=== PATIENT | female | born 1945 | race Caucasian/White ===

== ENCOUNTER 2017-01-18 09:58 | Emergency (ER) | payer OTHER, MEDICARE ==
[~2017-01-18] VITALS: Ht 152.4 cm; Wt 49.4 kg
[~2017-01-18 09:58] MED LIST: SIMV20TA2 PO
[2017-01-18 10:04] VITALS: BP_SYST 142
--- NOTE | 2017-01-18 10:09 | NUR ---
Patient triaged and placed in waiting room. VSS and patient appears in no acute distress at this time. Accompanied by SELF, awaiting available bed, and MD notified of need for MSE.
--- NOTE | 2017-01-18 10:53 | NUR ---
Patient to ER bed 3 to gown for evaluation. Side rails up. Report given to Yanni COATES.
[2017-01-18] MEDS ORDERED: NACL 0.9% 1,000 ML IV ONE (11:03)
--- NOTE | 2017-01-18 11:03 | NUR ---
ER at bedside examining patient.
--- NOTE | 2017-01-18 11:16 | NUR ---
Pt presents to ED with decreased appetite, and generalized weakness. Pt believes she may have skin ca, but does not have results of bx. Pt points to left side of nose as skin ca origin, but no noted growth to skin. Pt is A&O x4
--- NOTE | 2017-01-18 11:30 | NUR ---
Tech took pt to Radiology for Ct scan. Pt refused CT scan. Made Dr David aware, R/B explained. Pt cont to refuse
[2017-01-18 11:40] LABS: BASOPHILS % (AUTO) 0.2 % (0.0-2.0); HEMATOCRIT 44.5 % (36-48); HEMOGLOBIN 14.3 g/dL (12.0-16.0); LYMPHOCYTES # (AUTO) 0.7 K/uL (1.0-5.5); LYMPHOCYTES % (AUTO) 7.6 % (20.5-51.5); MEAN CORPUSCULAR HEMOGLOBIN 30 pg (27-31); MEAN CORPUSCULAR HGB CONC 32 % (32-36); MEAN CORPUSCULAR VOLUME 92 fL (79.0-98.0); MONOCYTES # (AUTO) 0.7 K/uL (0.0-1.0); MONOCYTES % (AUTO) 7.3 % (1.7-9.3); NEUTROPHILS # (AUTO) 7.7 K/uL (1.8-7.7); NEUTROPHILS % (AUTO) 84.9 % (40.0-70.0); PLATELET COUNT (AUTO) 193 K/uL (130-430); RED BLOOD CELL COUNT(AUTO) 4.84 MIL/uL (4.2-6.2); RED CELL DISTRIBUTION WIDTH 12.3 % (9.0-15.0); WHITE BLOOD COUNT (AUTO) 9.1 K/uL (4.8-10.8)
[2017-01-18 11:46] LABS: ANION GAP 11 (5-15); CALCIUM 8.6 mg/dL (8.4-11.0); CHLORIDE 97 mmol/L (98-107); CREATININE 0.96 mg/dL (0.55-1.30); GLUCOSE 123 mg/dL (70-99); POTASSIUM 3.6 mmol/L (3.5-5.1); SODIUM SERUM 133 mmol/L (136-145); UREA NITROGEN, BLOOD 15 mg/dL (8-21)
[2017-01-18 11:52] LABS: ALANINE AMINOTRANSFERASE 61 U/L (12-78); ASPARTATE AMINOTRANSFERASE 53 U/L (10-37); LIPASE 151 U/L (73-393); TOTAL BILIRUBIN 0.7 mg/dL (0.0-1.0)
[2017-01-18 11:58] LABS: BILIRUBIN,URINE 1+ (NEGATIVE); BLOOD, URINE 3+ (NEGATIVE); CLARITY/URINE SL HAZY (CLEAR); COLOR,URINE YELLOW (YELLOW); GLUCOSE,URINE NEGATIVE (NEGATIVE); KETONES,URINE 1+ (NEGATIVE); LEUKOCYTE ESTERASE ,URINE NEGATIVE (NEGATIVE); NITRITE, URINE NEGATIVE (NEGATIVE); PH,URINE 5.5 (5.0-8.0); PROTEIN URINE 2+ (NEGATIVE); UROBILINOGEN,URINE 0.2 (0.2-1.0)
[2017-01-18 12:11] LABS: BACTERIA,URINE MODERATE /HPF (None Seen); RBC,URINE 0-3 /HPF (0-3); WBC,URINE 0-3 /HPF (0-3)
[2017-01-18 12:12] LABS: MUCUS,URINE None Seen /LPF (None Seen)
--- NOTE | 2017-01-18 12:30 | NUR ---
Patient given written and verbal discharge instructions and verbalizes understanding. ER MD discussed with patient the results and treatment provided. Patient in stable condition. ID arm band removed. IV catheter removed intact and dressing applied, no active bleeding. No Rx given. Patient educated on pain management and to follow up with PMD. Pain Scale 0/10. Opportunity for questions provided and answered.
[2017-01-18 12:41] VITALS: BP_SYST 130
== END 2017-01-18 12:41 | disposition home or self-care (01) ==
LOC: SED 09:58
DX: F41.9 Anxiety disorder, unspecified (principal); E78.5 Hyperlipidemia, unspecified
CPT/HCPCS: 36415; 80053; 81000; 83690; 85025; 87086; 96360; 99284; J7030

== ENCOUNTER 2019-04-13 13:12 | Emergency (ER) | payer OTHER, BC ==
[~2019-04-13] VITALS: Ht 152.4 cm; Wt 55.8 kg
[2019-04-13 14:03] VITALS: BP_SYST 163
--- NOTE | 2019-04-13 16:59 | NUR ---
Called pt x 1 , no answer
--- NOTE | 2019-04-13 17:04 | NUR ---
Called pt x 2, no answer
== END 2019-04-13 16:07 | disposition left against medical advice (07) ==
LOC: SED 13:12
DX: R10.9 Unspecified abdominal pain (principal); Z53.21 Procedure and treatment not carried out due to patient leaving prior to being seen by health care provider

== ENCOUNTER 2019-05-29 17:25 | Emergency (ER) | payer OTHER, BC ==
--- NOTE | 2019-05-29 17:30 | NUR ---
PATIENT TO ER #3
--- NOTE | 2019-05-29 18:17 | NUR ---
PATIENT PRESENTS TO THE ER WITH SEVEN WEEK HX OF SEVERE PAIN TO LEFT ABDOMEN AND FLANK; WAS DIAGNOSED WITH SHINGLES AND STATES HER MEDICINE IS NO LONGER WORKING; 911 WAS CALLED ON HER BEHALF AND PATIENT BROUGHT TO ER BCLS; NO TRAUMA, NO OTHER REMARKABLE S/S
[2019-05-29] MEDS ORDERED: ACYCLOVIR IV 500 MG in D5W 100 ML IV ONE (18:30)
[2019-05-29] MEDS ORDERED: KETOROLAC TROMETHAMINE 30 MG VIAL IVP ONE (18:30)
--- NOTE | 2019-05-29 18:49 | NUR ---
IV PLACED #22 LEFT WRIST AND PATIENT PLACED ON HYBRID DERIVATIVES TRADER
[2019-05-29] MEDS ORDERED: ACYCLOVIR SODIUM 50 MG/ML VIAL IV ONE (18:56)
[2019-05-29 21:00] VITALS: BP_SYST 129
--- NOTE | 2019-05-29 21:00 | NUR ---
di Patient given written and verbal discharge instructions and verbalizes understanding. ER MD Chou discussed with patient the results and treatment provided. Patient in stable condition. ID arm band removed. IV catheter removed intact and dressing applied, no active bleeding. Rx of Acyclovir, Gabapentin given. Patient educated on pain management and to follow up with PMD. Pain Scale 0. Opportunity for questions provided and answered. Medication side effect fact sheet provided.
== END 2019-05-29 21:00 | disposition home or self-care (01) ==
LOC: SED 17:25
DX: B02.23 Postherpetic polyneuropathy (principal); E78.5 Hyperlipidemia, unspecified; Z85.72 Personal history of non-Hodgkin lymphomas
CPT/HCPCS: 36415; 87040; 96365; 96375; 99284; J0133; J1885

== ENCOUNTER 2019-06-17 07:41 | Emergency (ER) | payer OTHER, BC ==
[~2019-06-17] VITALS: Ht 147.3 cm; Wt 55.3 kg
[2019-06-17 08:00] VITALS: BP_SYST 143
--- NOTE | 2019-06-17 08:00 | NUR ---
Patient to ER bed 8 to gown for evaluation. Side rails up.
--- NOTE | 2019-06-17 08:13 | NUR ---
PT CAME TO ER FOR LOWER ABD STINGING PAIN AFTER BEING TREATED FOR SHINGLES. PAIN 09/16
--- NOTE | 2019-06-17 08:15 | NUR ---
ER at bedside examining patient.
[2019-06-17 08:43] LABS: BASOPHILS % (AUTO) 0.5 % (0.0-2.0); EOSINOPHILS # (AUTO) 0.1 K/uL (0.0-0.4); EOSINOPHILS % (AUTO) 1.7 % (0.0-4.0); HEMATOCRIT 45.3 % (36-48); HEMOGLOBIN 15.2 g/dL (12.0-16.0); LYMPHOCYTES # (AUTO) 1.3 K/uL (1.0-5.5); LYMPHOCYTES % (AUTO) 18.5 % (20.5-51.5); MEAN CORPUSCULAR HEMOGLOBIN 32 pg (27-31); MEAN CORPUSCULAR HGB CONC 34 % (32-36); MEAN CORPUSCULAR VOLUME 96 fL (79.0-98.0); MONOCYTES # (AUTO) 0.8 K/uL (0.0-1.0); MONOCYTES % (AUTO) 12.3 % (1.7-9.3); NEUTROPHILS # (AUTO) 4.5 K/uL (1.8-7.7); PLATELET COUNT (AUTO) 256 K/uL (130-430); RED BLOOD CELL COUNT(AUTO) 4.72 MIL/uL (4.2-6.2); RED CELL DISTRIBUTION WIDTH 14.4 % (9.0-15.0); WHITE BLOOD COUNT (AUTO) 6.8 K/uL (4.8-10.8)
[2019-06-17 08:55] LABS: ANION GAP 10 (5-15); CALCIUM 8.9 mg/dL (8.4-11.0); CHLORIDE 102 mmol/L (98-107); CREATININE 0.65 mg/dL (0.55-1.30); GLUCOSE 104 mg/dL (70-99); SODIUM SERUM 137 mmol/L (136-145); UREA NITROGEN, BLOOD 21 mg/dL (8-21)
[2019-06-17 09:00] LABS: ALANINE AMINOTRANSFERASE 27 U/L (12-78); ALBUMIN 3.4 g/dL (3.4-4.8); ASPARTATE AMINOTRANSFERASE 21 U/L (10-37); LIPASE 217 U/L (73-393); TOTAL BILIRUBIN 0.4 mg/dL (0.0-1.0)
--- NOTE | 2019-06-17 09:12 | NUR ---
PT REFUSES IV PLACEMENT AT THIS TIME.
--- NOTE | 2019-06-17 09:40 | NUR ---
Patient given written and verbal discharge instructions and verbalizes understanding. ER MD discussed with patient the results and treatment provided. Patient in stable condition. ID arm band removed. Rx of FLAGYL, TRAMADOL, AND ZOFRAN given. Patient educated on pain management and to follow up with PMD. Pain Scale 0. Opportunity for questions provided and answered. Medication side effect fact sheet provided.
[2019-06-17 09:41] VITALS: BP_SYST 143
== END 2019-06-17 09:41 | disposition home or self-care (01) ==
LOC: SED 07:41
DX: I88.0 Nonspecific mesenteric lymphadenitis (principal)
CPT/HCPCS: 36415; 80053; 83690-TC; 85025; 99284

== ENCOUNTER 2019-08-20 06:56 | Emergency (ER) | payer OTHER, BC ==
[~2019-08-20] VITALS: Ht 152.4 cm; Wt 54.4 kg
[2019-08-20 07:12] VITALS: BP_SYST 135
--- NOTE | 2019-08-20 07:12 | NUR ---
Patient to ER bed 7 to gown for evaluation. Side rails up. Report given to Nely COATES.
--- NOTE | 2019-08-20 07:13 | NUR ---
Pt c/o L eye pain and reddness x 1 week. Rates pain 9/10. pt has taken Ibuprofen for the pain, w/ minimal relief. Pt went to PCP and diagnosed with Iritis but was not given rx. Denies blurry vision.
--- NOTE | 2019-08-20 07:14 | NUR ---
ER at bedside examining patient.
--- NOTE | 2019-08-20 08:09 | NUR ---
Visual acuity 20/20 peformed by JAXON Gastelum
--- NOTE | 2019-08-20 08:19 | NUR ---
Patient given written and verbal discharge instructions and verbalizes understanding. ER Dr. Gonzalez discussed with patient the results and treatment provided. Patient in stable condition. ID arm band removed. Rx of Erythomycin 0.5% ophthalmic ointment given. Patient educated on pain management and to follow up with PMD. Pain Scale 7/10. Opportunity for questions provided and answered. Medication side effect fact sheet provided.
[2019-08-20 08:21] VITALS: BP_SYST 135
== END 2019-08-20 08:21 | disposition home or self-care (01) ==
LOC: SED 06:56
DX: S05.02XA Injury of conjunctiva and corneal abrasion without foreign body, left eye, initial encounter (principal); E78.5 Hyperlipidemia, unspecified; Z85.72 Personal history of non-Hodgkin lymphomas; X58.XXXA Exposure to other specified factors, initial encounter; Y93.89 Activity, other specified; Y92.89 Other specified places as the place of occurrence of the external cause; Y99.8 Other external cause status
CPT/HCPCS: 99283

== ENCOUNTER 2022-05-04 12:58 | Emergency (ER) | payer OTHER, BC ==
[~2022-05-04] VITALS: Ht 152.4 cm; Wt 49.9 kg
[~2022-05-04 12:58] MED LIST changes: +SIMV-343 PO; -SIMV20TA2 PO
[2022-05-04 13:05] VITALS: BP_SYST 175
--- NOTE | 2022-05-04 13:10 | NUR ---
BROUGHT BACK TO BED #1 AND TRIAGED. REPORT GIVEN TO JAGRUTI
--- NOTE | 2022-05-04 13:20 | NUR ---
RECEIVED PT FROM JAXON CASTANEDA. PT BIBS FOR C/O MECHANICAL FALL PT HAS LACERATION TO RIGHT INDEX FINGER, ALSO HIT RIGHT KNEE, LEFT ELBOW, AND HEAD. PT IS AAOX4. ON R/A. DENIES N/V/D/C. DISTAL PULSES NORMAL. SIDERAILS UP X2.
--- NOTE | 2022-05-04 13:20 | NUR ---
COLD PACK PLACED TO RIGHT KNEE, RIGHT INDEX FINGER RINSE WITH NS, PATTED DRY. 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
[2022-05-04] MEDS ORDERED: DIPHTH,PERTUSS(ACELL),TET VAC 0.5 ML VIAL (Tdap) I.M. ONE (14:15)
[2022-05-04] MEDS ORDERED: LIDOCAINE PF 1%, 20 MG/2 ML AMP INJ ONE (14:15)
--- NOTE | 2022-05-04 14:23 | NUR ---
TDAP IM GIVEN TO LEFT DELTOID. SITE COVERED WITH BANDAID.
--- NOTE | 2022-05-04 14:26 | NUR ---
TAKEN TO RADIOLOGY VIA IZZY
--- NOTE | 2022-05-04 15:39 | NUR ---
DR. GALLAGHER AT BEDSIDE TO TREAT PT'S WOUNDS.
[2022-05-04] MEDS ORDERED: TRAM50TA2 PO (15:59)
[2022-05-04] MEDS ORDERED: CEPH-548 PO (15:59)
[2022-05-04] MEDS ORDERED: ACETAMINOPHEN 500 MG TABLET PO ONE (16:00)
[2022-05-04] MEDS ORDERED: IBUPROFEN 600 MG TABLET PO ONE (17:15)
--- NOTE | 2022-05-04 17:15 | NUR ---
pt refused tylenol, she states it gives her a h/a.
[2022-05-04] MEDS ORDERED: IBUPROFEN 600 MG TABLET ONE (17:20)
--- NOTE | 2022-05-04 17:29 | NUR ---
PT REFUSED MOTRIN STATED SHE DIDN'T WANT IT. PT ASSISTED TO BEDSIDE COMMODE.
--- NOTE | 2022-05-04 17:36 | NUR ---
Patient given written and verbal discharge instructions and verbalizes understanding. ER MD discussed with patient the results and treatment provided. Patient in stable condition. ID arm band removed. Rx of given.CEPHALEXIN/TRAMADOL Patient educated on pain management and to follow up with PMD. Pain Scale 0/10. Opportunity for questions provided and answered. Medication side effect fact sheet provided.
[2022-05-04 17:38] VITALS: BP_SYST 157
--- NOTE | 2022-05-04 17:40 | NUR ---
PT GIVEN ABDAPITCS, KERLIX AND TAPE FOR WOUND CARE AT HOME.
== END 2022-05-04 17:38 | disposition home or self-care (01) ==
LOC: SED 12:58
DX: S61.210A Laceration without foreign body of right index finger without damage to nail, initial encounter (principal); S83.91XA Sprain of unspecified site of right knee, initial encounter; S09.90XA Unspecified injury of head, initial encounter; Z79.899 Other long term (current) drug therapy; W01.198A Fall on same level from slipping, tripping and stumbling with subsequent striking against other object, initial encounter; Y93.89 Activity, other specified; Y92.89 Other specified places as the place of occurrence of the external cause; Y99.8 Other external cause status
CPT/HCPCS: 70450-TC; 73564; 76376; 90715; 99284

== ENCOUNTER 2023-09-18 09:54 | Emergency (ER) | payer OTHER, BC ==
[~2023-09-18] VITALS: Ht 165.1 cm; Wt 52.2 kg
[~2023-09-18 09:54] MED LIST changes: +CEPH-548 PO; +TRAM50TA2 PO
[2023-09-18 10:11] VITALS: BP_SYST 137; PULSE 75; RESP 18; TEMP 98.3; O2SAT 100
[2023-09-18] MEDS ORDERED: PRED20TA PO (10:45)
[2023-09-18] MEDS ORDERED: DIPH25CA83 PO (10:45)
[2023-09-18] MEDS ORDERED: HYDC2.5% TP (10:45)
== END 2023-09-18 10:56 | disposition home or self-care (01) ==
LOC: SED 09:54
DX: L50.9 Urticaria, unspecified (principal); E78.5 Hyperlipidemia, unspecified; Z85.72 Personal history of non-Hodgkin lymphomas; Z79.899 Other long term (current) drug therapy; Z79.2 Long term (current) use of antibiotics
CPT/HCPCS: 99283